=== PATIENT | male | born 1955 | race Caucasian/White ===

== ENCOUNTER 2020-10-16 15:25 | Outpatient (RCR) | payer BC, SELFPAY ==
[2020-10-16] MEDS: COVID-19 VACC, MRNA(PFIZER)/PF 30 MCG/0.3 ML SYRINGE IM (08:06)
[2020-11-06] MEDS: COVID-19 VACC, MRNA(PFIZER)/PF 30 MCG/0.3 ML SYRINGE IM (07:46)
== END 2020-10-16 23:59 ==
LOC: IMMUN 15:25
PROVIDERS: PCP Internal Medicine; Visit Provider Family Medicine
DX: Z23 Encounter for immunization (principal)
CPT/HCPCS: 0001A; 0002A; 91300

== ENCOUNTER 2023-08-27 10:04 | Emergency (ER) | payer BC, SELFPAY ==
[2023-08-27 10:04] VITALS: BP 147/86; PULSE 81; RESP 18; TEMP 35.2; O2SAT 98; BMI 35.9
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
--- OUTSIDE RECORDS SUMMARY | 2023-08-27 10:32 | XMS RPT_ITS | CCD ---
Author Name Unknown Address [address] [place] [address] Organization [facility] Care Team Providers Care Hot Dog Vendor Name Role Phone Govind Martinez MD Primary Care Provider GOVIND MARTINEZ Primary Care Unavailable JUSTINAMPOLEKSANDR GOVIND Lelo Referring Unavailable TALAMPAS GOVIND Lelo Primary Care Unavailable SELF Referring Unavailable JUSTINAMPOLEKSANDR GOVIND D Primary Care Unavailable JUSTINAMPOLEKSANDR GOVIND D Referring Unavailable TALAMPOLEKSANDR GOVIND D Attending Unavailable YURI MARTINEZA D Primary Care Unavailable Allergies Allergy Classification Reported Allergen(s) Allergy Type Date of Onset Reaction(s) Facility (5 sources) Amoxicillin / Clavulanate; Translations: [AMOXICILLIN-POT CLAVULANATE] Drug Allergy 02-26-2015 Diarrhea [facility] Work Phone: Medications Current Medications Medication Drug Class(es) Dates Sig (Normalized) Sig (Original) cephalexin 500 mg oral capsule (1 source) Cephalosporin Antibacterial Start: 01-29-2023 End: 02-05-2023 take 1 capsule by mouth three times daily cephALEXin (KEFLEX) 500 mg capsule Take 1 capsule by mouth three times daily for 7 days. 21 capsule 0 01/29/2023 02/05/2023 Active Completed/Discontinued Medications Medication Drug Class(es) Dates Sig (Normalized) Sig (Original) aspirin 81 mg chewable tablet (4 sources) Platelet Aggregation Inhibitor, Nonsteroidal Anti-inflammatory Drug take 1 tablet by mouth once daily aspirin 81 mg chewable tablet Take 81 mg by mouth once daily. 0 Active Problems Active Problems Problem Classification Problem Date Documented Da te Episodic/Chronic Diabetes mellitus without complication (6 sources) Increased glucose level; Translations: [Other abnormal glucose] Onset: 11-09-2022 Episodic Essential hypertension (7 sources) Essential hypertension; Translations: [Essential (primary) hypertension] Onset: 09-17-2020 Chronic Immunizations and screening for infectious disease (2 sources) Vaccination needed; Translations: [Encounter for immunization] Episodic Other nutritional; endocrine; and metabolic disorders (5 sources) Obesity; Translations: [Other obesity due to excess calories] Onset: 09-17-2020 Chronic Other nutritional; endocrine; and metabolic disorders (1 source) Obesity caused by energy imbalance; Translations: [Other obesity due to excess calories] Onset: 09-17-2020 09-17-2020 Chronic Other skin disorders (1 source) Eruption; Translations: [Rash and other nonspecific skin eruption] Episodic Residual codes; unclassified (2 sources) Bilateral lower limb edema; Translations: [Localized edema] Episodic Thyroid disorders (14 sources) Acquired hypothyroidism; Translations: [Hypothyroidism, unspecified] Onset: 12-14-2011 Chronic Past or Other Problems Problem Classification Problem Date Documented Da te Episodic/Chronic Other non-traumatic joint disorders (4 sources) Hip pain; Translations: [Pain in left hip] Onset: 09-11-2019 09-11-2019 Episodic Spondylosis; intervertebral disc disorders; other back problems (5 sources) Spinal stenosis of lumbar region; Translations: [Spinal stenosis, lumbar region with neurogenic claudication] Onset: 09-17-2020 Episodic Results Test Name Value Interpretation Reference Range Facil ity Vital Signs Date Time Vital Sign Value Performing Clinician Maggie bird 01-29-2023 08:25-0400 Body temperature 98.29 [degF] Mo Lovelace APRN.[employer] Work Phone: [facility] 01-29-2023 08:25-0400 Body weight 115.3 kg Mo Lovelace APRN.[employer] Work Phone: [facility] 01-29-2023 08:25-0400 Diastolic blood pressure 76 mm[Hg] Mo Lovelace GLASS VIAL FILLER.[employer]ESPERSON [employer] Work Phone: [facility] 01-29-2023 08:25-0400 Heart rate 90 /min Mo Lovelace APRN.[employer] Work Phone: [facility] 01-29-2023 08:25-0400 Respiratory rate 18 /min Mo Lovelace APRN.[employer] Work Phone: [facility] 01-29-2023 08:25-0400 SaO2% (BldA) [Mass fraction] 97 % Mo Lovelace GLASS VIAL FILLER.[employer] Work Phone: [facility] 01-29-2023 08:25-0400 Systolic blood pressure 110 mm[Hg] Mo Lovelace GLASS VIAL FILLER.[employer] Work Phone: [facility] 11-09-2022 09:24-0400 Diastolic blood pressure 80 mm[Hg] Govind Martinez MD Work Phone: [facility] 11-09-2022 09:24-0400 Systolic blood pressure 130 mm[Hg] Govind Martinez MD Work Phone: [facility] 11-09-2022 08:51-0400 Body height 177.7 cm Govind Martinez MD Work Phone: [facility] 11-09-2022 08:51-0400 Body temperature 97.7 [degF] Govind Martinez MD Work Phone: [facility] 11-09-2022 08:51-0400 Body weight 116.12 kg Govind Martinez MD Work Phone: [facility] 11-09-2022 08:51-0400 Heart rate 69 /min Govind Martinez MD Work Phone: [facility] 11-09-2022 08:51-0400 Respiratory rate 18 /min Govind Martinez MD Work Phone: [facility] 11-09-2022 08:51-0400 SaO2% (BldA) [Mass fraction] 97 % Govind Martinez MD Work Phone: [facility] 10-30-2021 17:54-0400 Diastolic blood pressure 78 mm[Hg] Govind Martinez MD Work Phone: [facility] 10-30-2021 17:54-0400 Systolic blood pressure 122 mm[Hg] Govind Martinez MD Work Phone: [facility] 10-30-2021 16:28-0400 Body weight 116.85 kg Govind Martinez MD Work Phone: [facility] 10-30-2021 16:28-0400 Heart rate 82 /min Govind Martinez MD Work Phone: [facility] Encounters Encounter Date Encounter Type Care Provider Facility Start: 01-29-2023 End: 01-29-2023 ambulatory GOVIND MARTINEZ Facility:[facility] Start: 01-29-2023 End: 01-29-2023 Office outpatient visit 25 minutes Mo Lovelace APRN.[employer]ERSON [employer] Work Phone: [facility] Procedures Date Procedure Procedure Detail Performing Clinician Start: 09-14-2022 Second Genome-BIONTMRI Interventions COVI D-19 BIVALENT BOOSTER VACCINE, AGE 12+ YR Govind Martinez MD Work Phone: Start: 11-11-2020 Adult depression scr eening assessment Govind Martinez MD Work Phone: Start: 08-28-2018 Colonoscopy Govind meyers MD Work Phone: Plan of Treatment Date Care Activity Detail Author Start: 03-06-2029 Urine microalbumin profile DTA P,TDAP,TD (2 - Td or Tdap) [facility] Start: 10-30-2026 PROSTATE CANCER SCRE ENING DISCUSSION PROSTATE CANCER SCREENING DISCUSSION [facility] Start: 11-09-2025 DIABETES SCREEN DIABETES SCREEN [facility] Start: 10-19-2024 DIABETES SCREEN DIABETES SCREEN [facility] Start: 03-03-2024 LIPID SCREEN LIPID SCREEN [facility] Start: 01-30-2024 BP CONTROLLED (<130/80) BP CONTROLLE D (<130/80) [facility] Start: 11-10-2023 ANNUAL PCP TEAM SPRING SETTER JEREL DISEASE VISIT ANNUAL PCP TEAM CHRONIC DISEASE VISIT [facility] Start: 11-10-2023 SHINGRIX VACCINE (1 of 2) DU GRIX VACCINE (1 of 2) [facility] Immunizations Immunization Date Immunization Notes Care Provider Fa angel 11-09-2022 pneumococcal (PCV20) vaccine, 20 valent (PREVNAR 20) Govind Martinez MD Work Phone: [facility] 11-09-2022 pneumococcal Conjuga te, unspecified formulation Govind Martinez MD Work Phone: [facility] Work Phone: 09-14-2022 COVID-19 booster vaccine, age 12+ yr, bivalent (PFIZER-BlendspaceNTMRI Interventions) Nv Nurse Work Phone: [facility] Work Phone: 05-24-2022 influenza, injectabl e, quadrivalent, preservative free Govind Martinez MD Work Phone: [facility] 05-11-2021 influenza, injectabl e, quadrivalent, preservative free Govind Martinez MD Work Phone: [facility] 06-02-2020 Influenza, injectabl e, Madin Alma Canine Kidney, preservative free, quadrivalent Govind Martinez MD Work Phone: [facility] 08-06-2019 influenza, injectabl e, quadrivalent, contains preservative Govind Martinez MD Work Phone: [facility] 03-06-2019 tetanus toxoid, redu laith diphtheria toxoid, and acellular pertussis vaccine, adsorbed Govind Martinez MD Work Phone: [facility] Payers Date Payer Category Payer Unknown [employer] PPO OOS [id number] 2020-Present [phone] [address] [place] [address] PPO [id number] 2020 Unknown [employer] PPO OOS [id number] 2020-Present [phone] [address] [place] [address] PPO [id number] 2020 Unknown [id number] Social History Date Type Detail Facility Start: 03-03-2011 End: 11-09-2022 Tobacco smoking status NHIS Never smoked tobacco [facility] Work Phone: Start: 10-30-2021 End: 01-29-2023 Alcohol intake Current non-drinker of alcohol (finding) [facility] Start: 1955 Sex Assigned At Male [facility] Start: 10-20-2021 End: 10-30-2021 Exposure to SARS-CoV-2 (event) Not sure [facility] Start: 03-03-2011 End: 11-09-2022 Tobacco use and exposure Smokeless tobacco non-user [facility] Work Phone: Start: 11-02-2022 History SDOH Alcohol Frequency 1 [facility] Start: 11-02-2022 History SDOH Alcohol Std Drinks 0 [facility] Start: 11-02-2022 History SDOH Social Connections Phone 5 [facility] Start: 11-02-2022 History SDOH Social Connections Get Together 2 [facility] Start: 11-02-2022 History SDOH Social Connections Yarsanism 3 [facility] Start: 11-02-2022 History SDOH Physica l Activity MPS 4 [facility] Clinical Notes 07-21-2011 to 01-29-2023 Mo Lovelace APRN.[employer] - 01/29/2023 8:27 AM Lucian Martinez MD - 11/09/2022 9:02 AM Marty Shen LPN - 09/14/2022 3:16 PM Elena Martinez MD - 10/30/2021 4:24 PM EDT Note Date & Type Note Facility 01-29-2023 Note HNO ID: [id number] Author: Mo Lovelace APRN.[employer] Service: ? Author Type: Nurse Practitioner Type: Progress Notes Filed: 01/29/2023 9:07 AM Note Text: Subjective HPI Nontoxic-appearing male presents urgent care chief plaint rash. Duration of symptom 1 week. Associated symptoms slightly pruritic erythematous base rash. States rash has spread in size. It is slightly red. Slightly painful. Does have poison nora on back of his leg. Does not know if this rash is related to poison nora or not. Has been keeping it covered and using mupirocin. Denies any significant pain. No medication changes antibiotic use. No numbness no tingling Denies any fever body aches chills productive cough chest pain shortness of breath pleuritic pain hemoptysis nausea vomiting abdominal pain change in bowel or bladder habits. Past medical history prescription medication use and allergies reviewed. .Patient presents with: Derm Problem: R ankle skin infection x1 week PAST MEDICAL HISTORY Diagnosis Date Hypertension Mild. Controlled without medications Hypothyroidism Multiple thyroid nodules Sep 2010 PAST SURGICAL HISTORY Procedure Laterality Date COLONOSCOPY AND POLYPECTOMY 2006 [facility] COLONOSCOPY FLX DX W/COLLJ SPEC WHEN PFRMD 08/28/2018 Colonoscopy EGD ~1998 ulcer FNA 2010 thyroid PAST SURGICAL HISTORY OF 09/24/2020 Microdiscectomy L3-4 REMOVE CATARACT, INSERT LENS, INTRACAPSUL 2007 Unilateral left. Unknown etiology THYROID/PARATHYROID (POC) ENDO USE ONLY 12/20/2014 ALLERGIES Augmentin [Amoxicillin-Pot Clavulanate] MEDICATIONS hydroCHLOROthiazide 12.5 mg capsule Take 2 capsules by mouth once daily. levothyroxine (SYNTHROID) 88 mcg tablet Take 1 tablet by mouth once daily. triamcinolone (KENALOG) 0.025 % cream Apply to affected area twice daily. Lutein 20 mg cap Take 20 mg by mouth once daily. gi-7-poc-epa-fish oil-vit D3 [phone] rb-df-yz-unit cap Take by mouth once daily. aspirin 81 mg chewable tablet Take 81 mg by mouth once daily. Garlic ORAL Tab Take 1 tablet by mouth. [id number] DAILY FAMILY HISTORY Problem Relation Age of Onset Cancer Mother Ovarian Aneurysm Father aortic Diabetes Sister Thyroid Cancer Brother papillary thyroid cancer other (Blood clots) Brother Diabetes Brother Ischemic Heart Disease No Family History Social History Tobacco Use Smoking status: Never Smokeless tobacco: Never Vaping Use Vaping Use: Never used Substance Use Topics Alcohol use: No Drug use: No BP 110/76 Pulse 90 Temp 36.8 ?C (98.3 ?F) Resp 18 Wt 115.3 kg (254 lb 3.2 oz) SpO2 97% BMI 36.49 kg/m? Review of Systems Constitutional: Negative for chills, fever and malaise/fatigue. HENT: Negative for congestion, ear discharge, ear pain, sinus pain and sore throat. Eyes: Negative for blurred vision, pain, discharge and redness. Respiratory: Negative for cough, hemoptysis, sputum production, shortness of breath, wheezing and stridor. Cardiovascular: Negative for chest pain. Gastrointestinal: Negative for abdominal pain, diarrhea, nausea and vomiting. Musculoskeletal: Negative for myalgias. Skin: Positive for itching and rash. Neurological: Negative for dizziness and headaches. Objective Physical Exam Constitutional: General: He is not in acute distress. Appearance: He is not toxic-appearing. HENT: Head: Normocephalic. Nose: Nose normal. Eyes: Pupils: Pupils are equal, round, and reactive to light. Cardiovascular: Rate and Rhythm: Normal rate. Pulmonary: Effort: Pulmonary effort is normal. No respiratory distress. Musculoskeletal: Cervical back: Normal range of motion. Skin: General: Skin is warm and dry. Comments: Erythematous base rash with blood noted. Some surrounding erythema noted. Mild edema. No remote redness. Some clear drainage noted. Neurological: General: No focal deficit present. Mental Status: He is alert. ASSESSMENT/PLAN: 1. Rash - ICD9: 782.1, ICD10: R21 Diagnosis rash. Suspicious of contact dermatitis due to poison nora exposure. Placed on prednisone taper and Keflex for secondary bacterial infection. Patient was educated on supportive therapies. Patient will follow up with primary care provider as needed. Patient was instructed to immediately proceed to emergency room for any new, worsening, or symptoms lasting longer than anticipated. The patient's clinical presentation is otherwise unremarkable at this time. Based on exam and clinical finding, the patient is stable for discharge. Plan of care was discussed with patient. Patient verbalizes understanding and agrees to plan of care. This note was generated using [employer] software. It may contain errors in wording, punctuation, or spelling. Mo Lovelace APRN.[facility] 01-29-2023 History of Present illness Narrative Subjective HPI Nontoxic-appearing male presents urgent care chief plaint rash. Duration of symptom 1 week. Associated symptoms slightly pruritic erythematous base rash. States rash has spread in size. It is slightly red. Slightly painful. Does have poison nora on back of his leg. Does not know if this rash is related to poison nora or not. Has been keeping it covered and using mupirocin. Denies any significant pain. No medication changes antibiotic use. No numbness no tingling Denies any fever body aches chills productive cough chest pain shortness of breath pleuritic pain hemoptysis nausea vomiting abdominal pain change in bowel or bladder habits. Past medical history prescription medication use and allergies reviewed. .Patient presents with: Derm Problem: R ankle skin infection x1 week PAST MEDICAL HISTORY Diagnosis Date Hypertension Mild. Controlled without medications Hypothyroidism Multiple thyroid nodules Sep 2010 PAST SURGICAL HISTORY Procedure Laterality Date COLONOSCOPY & POLYPECTOMY 2006 [facility] COLONOSCOPY FLX DX W/COLLJ SPEC WHEN PFRMD 08/28/2018 Colonoscopy EGD ~1998 ulcer FNA 2010 thyroid PAST SURGICAL HISTORY OF 09/24/2020 Microdiscectomy L3-4 REMOVE CATARACT, INSERT LENS, INTRACAPSUL 2007 Unilateral left. Unknown etiology US THYROID/PARATHYROID (POC) ENDO USE ONLY 12/20/2014 ALLERGIES Augmentin [Amoxicillin-Pot Clavulanate] MEDICATIONS hydroCHLOROthiazide 12.5 mg capsule Take 2 capsules by mouth once daily. levothyroxine (SYNTHROID) 88 mcg tablet Take 1 tablet by mouth once daily. triamcinolone (KENALOG) 0.025 % cream Apply to affected area twice daily. Lutein 20 mg cap Take 20 mg by mouth once daily. ji-3-bza-epa-fish oil-vit D3 [phone] yf-hj-xv-unit cap Take by mouth once daily. aspirin 81 mg chewable tablet Take 81 mg by mouth once daily. Garlic ORAL Tab Take 1 tablet by mouth. [id number] DAILY FAMILY HISTORY Problem Relation Age of Onset Cancer Mother Ovarian Aneurysm Father aortic Diabetes Sister Thyroid Cancer Brother papillary thyroid cancer other (Blood clots) Brother Diabetes Brother Ischemic Heart Disease No Family History Social History Tobacco Use Smoking status: Never Smokeless tobacco: Never Vaping Use Vaping Use: Never used Substance Use Topics Alcohol use: No Drug use: No BP 110/76 Pulse 90 Temp 36.8 C (98.3 F) Resp 18 Wt 115.3 kg (254 lb 3.2 oz) SpO2 97% BMI 36.49 kg/m Review of Systems Constitutional: Negative for chills, fever and malaise/fatigue. HENT: Negative for congestion, ear discharge, ear pain, sinus pain and sore throat. Eyes: Negative for blurred vision, pain, discharge and redness. Respiratory: Negative for cough, hemoptysis, sputum production, shortness of breath, wheezing and stridor. Cardiovascular: Negative for chest pain. Gastrointestinal: Negative for abdominal pain, diarrhea, nausea and vomiting. Musculoskeletal: Negative for myalgias. Skin: Positive for itching and rash. Neurological: Negative for dizziness and headaches. Objective Physical Exam Constitutional: General: He is not in acute distress. Appearance: He is not toxic-appearing. HENT: Head: Normocephalic. Nose: Nose normal. Eyes: Pupils: Pupils are equal, round, and reactive to light. Cardiovascular: Rate and Rhythm: Normal rate. Pulmonary: Effort: Pulmonary effort is normal. No respiratory distress. Musculoskeletal: Cervical back: Normal range of motion. Skin: General: Skin is warm and dry. Comments: Erythematous base rash with blood noted. Some surrounding erythema noted. Mild edema. No remote redness. Some clear drainage noted. Neurological: General: No focal deficit present. Mental Status: He is alert. ASSESSMENT/PLAN: 1. Rash - ICD9: 782.1, ICD10: R21 Diagnosis rash. Suspicious of contact dermatitis due to poison nora exposure. Placed on prednisone taper and Keflex for secondary bacterial infection. Patient was educated on supportive therapies. Patient will follow up with primary care provider as needed. Patient was instructed to immediately proceed to emergency room for any new, worsening, or symptoms lasting longer than anticipated. The patient's clinical presentation is otherwise unremarkable at this time. Based on exam and clinical finding, the patient is stable for discharge. Plan of care was discussed with patient. Patient verbalizes understanding and agrees to plan of care. This note was generated using [employer] software. It may contain errors in wording, punctuation, or spelling. Mo Lovelace APRN.MARTIN documented in this encounter [facility] 11-09-2022 Note HNO ID: [id number] Author: Govind Martinez MD Service: ? Author Type: Physician Type: Progress Notes Filed: 11/09/2022 1:48 PM Note Text: This note was created using [employer]. Subjective Jazmin Le is a 67 year old male. HISTORY Jazmin Le is a 67 year old gentleman here for yearly exam and follow up appointment. No problems with BPs at home. Checks once in a while. Clinically euthyroid. Does have HCDPOA and LW. Discussed dropping off copy. HCDPOA os [place]. Walking daily now. Working on healthier diet. Weight already coming down. PAST MEDICAL HISTORY Diagnosis Date Hypertension Mild. Controlled without medications Hypothyroidism Multiple thyroid nodules Sep 2010 Current Outpatient Medications Medication Sig triamcinolone (KENALOG) 0.025 % cream Apply to affected area twice daily. hydroCHLOROthiazide 12.5 mg capsule Take 2 capsules by mouth once daily. levothyroxine (SYNTHROID) 88 mcg tablet Take 1 tablet by mouth once daily. Lutein 20 mg cap Take 20 mg by mouth once daily. qd-3-ovq-epa-fish oil-vit D3 [phone] jn-di-wc-unit cap Take by mouth once daily. aspirin 81 mg chewable tablet Take 81 mg by mouth once daily. Garlic ORAL Tab Take 1 tablet by mouth. [id number] DAILY No current facility-administered medications for this visit. ALLERGIES Allergen Reactions Augmentin [Amoxicil* Diarrhea FAMILY HISTORY Problem Relation Age of Onset Cancer Mother Ovarian Aneurysm Father aortic Diabetes Sister Thyroid Cancer Brother papillary thyroid cancer other (Blood clots) Brother Diabetes Brother Ischemic Heart Disease No Family History Social History Tobacco Use Smoking status: Never Smokeless tobacco: Never Vaping Use Vaping Use: Never used Substance Use Topics Alcohol use: No Drug use: No Review of Systems Objective BP 136/78 Pulse 69 Temp 36.5 ?C (97.7 ?F) Resp 18 Ht 177.7 cm (5' 9.98 ) Wt 116.1 kg (256 lb) SpO2 97% BMI 36.75 kg/m? Last 5 Encounter Wt Readings: Date: Wt: 11/09/2022 116.1 kg (256 lb) 10/30/2021 116.8 kg (257 lb 9.6 oz) 11/17/2020 113.4 kg (250 lb) 09/17/2020 114.3 kg (252 lb) 09/05/2020 115.7 kg (255 lb) No waist measurement recorded Estimated body mass index is 36.75 kg/m? as calculated from the following: Height as of this encounter: 177.7 cm (5' 9.98 ). Weight as of this encounter: 116.1 kg (256 lb). Last 5 Encounter BP Readings: Date: BP: 11/09/2022 136/78 10/30/2021 122/78 11/17/2020 140/90 09/17/2020 134/80 09/05/2020 131/78 11/09/22 0851 11/09/22 0924 BP: 136/78 130/80 Pulse: 69 Resp: 18 Temp: 36.5 ?C (97.7 ?F) SpO2: 97% Weight: 116.1 kg (256 lb) Height: 177.7 cm (5' 9.98 ) Physical Exam Vitals reviewed. Constitutional: Appearance: Normal appearance. He is obese. HENT: Head: Normocephalic. Right Ear: Tympanic membrane, ear canal and external ear normal. Left Ear: Tympanic membrane, ear canal and external ear normal. Mouth/Throat: Mouth: Mucous membranes are moist. Pharynx: Oropharynx is clear. Eyes: Extraocular Movements: Extraocular movements intact. Conjunctiva/sclera: Conjunctivae normal. Neck: Vascular: No carotid bruit. Cardiovascular: Rate and Rhythm: Normal rate and regular rhythm. Pulses: Normal pulses. Heart sounds: Normal heart sounds. Comments: 1+ ankle edema and pretibial edema bilaterally Pulmonary: Effort: Pulmonary effort is normal. Breath sounds: Normal breath sounds. Abdominal: General: Abdomen is flat. There is no distension. Palpations: Abdomen is soft. There is no mass. Musculoskeletal: Cervical back: Normal range of motion. Skin: General: Skin is warm and dry. Neurological: General: No focal deficit present. Mental Status: He is alert and oriented to person, place, and time. Psychiatric: Attention and Perception: Attention and perception normal. Mood and Affect: Mood and affect normal. Speech: Speech normal. Behavior: Behavior normal. Thought Content: Thought content normal. Cognition and Memory: Cognition normal. Judgment: Judgment normal. Assessment and Plan Encounter Diagnosis ICD-10-CM 1. Essential hypertension I10 hydroCHLOROthiazide 12.5 mg capsule COMP METABOLIC PANEL CBC 2. Acquired hypothyroidism E03.9 levothyroxine (SYNTHROID) 88 mcg tablet TSH BLD T4 FREE/FREE THYROX T3 FREE BLD US THYROID/PARATHYROID 3. Multiple thyroid nodules E04.2 TSH BLD T4 FREE/FREE THYROX T3 FREE BLD US THYROID/PARATHYROID 4. Elevated hemoglobin A1c R73.09 COMP METABOLIC PANEL HGB A1C 5. Bilateral lower extremity edema R60.0 hydroCHLOROthiazide 12.5 mg capsule prior left ankle fracture contributes to increased swelling in left ankle 6. Elevated glucose R73.09 COMP METABOLIC PANEL HGB A1C 7. Encounter for immunization Z23 PNEUMOCOCCAL VACCINE (PREVNAR 20) 8. Class 2 obesity due to excess calories without serious comorbidity with body mass index (BMI) of (more content not included)... [facility] 11-09-2022 History of Present illness Narrative This note was created using [employer]. Subjective Jazmin Le is a 67 year old male. HISTORY Jazmin Le is a 67 year old gentleman here for yearly exam and follow up appointment. No problems with BPs at home. Checks once in a while. Clinically euthyroid. Does have HCDPOA and LW. Discussed dropping off copy. HCDPOA os [place]. Walking daily now. Working on healthier diet. Weight already coming down. PAST MEDICAL HISTORY Diagnosis Date Hypertension Mild. Controlled without medications Hypothyroidism Multiple thyroid nodules Sep 2010 Current Outpatient Medications Medication Sig triamcinolone (KENALOG) 0.025 % cream Apply to affected area twice daily. hydroCHLOROthiazide 12.5 mg capsule Take 2 capsules by mouth once daily. levothyroxine (SYNTHROID) 88 mcg tablet Take 1 tablet by mouth once daily. Lutein 20 mg cap Take 20 mg by mouth once daily. lk-9-ksu-epa-fish oil-vit D3 [phone] vt-kl-ma-unit cap Take by mouth once daily. aspirin 81 mg chewable tablet Take 81 mg by mouth once daily. Garlic ORAL Tab Take 1 tablet by mouth. [id number] DAILY No current facility-administered medications for this visit. ALLERGIES Allergen Reactions Augmentin [Amoxicil* Diarrhea FAMILY HISTORY Problem Relation Age of Onset Cancer Mother Ovarian Aneurysm Father aortic Diabetes Sister Thyroid Cancer Brother papillary thyroid cancer other (Blood clots) Brother Diabetes Brother Ischemic Heart Disease No Family History Social History Tobacco Use Smoking status: Never Smokeless tobacco: Never Vaping Use Vaping Use: Never used Substance Use Topics Alcohol use: No Drug use: No Review of Systems Objective BP 136/78 Pulse 69 Temp 36.5 C (97.7 F) Resp 18 Ht 177.7 cm (5' 9.98 ) Wt 116.1 kg (256 lb) SpO2 97% BMI 36.75 kg/m Last 5 Encounter Wt Readings: Date: Wt: 11/09/2022 116.1 kg (256 lb) 10/30/2021 116.8 kg (257 lb 9.6 oz) 11/17/2020 113.4 kg (250 lb) 09/17/2020 114.3 kg (252 lb) 09/05/2020 115.7 kg (255 lb) No waist measurement recorded Estimated body mass index is 36.75 kg/m as calculated from the following: Height as of this encounter: 177.7 cm (5' 9.98 ). Weight as of this encounter: 116.1 kg (256 lb). Last 5 Encounter BP Readings: Date: BP: 11/09/2022 136/78 10/30/2021 122/78 11/17/2020 140/90 09/17/2020 134/80 09/05/2020 131/78 11/09/22 0851 11/09/22 0924 BP: 136/78 130/80 Pulse: 69 Resp: 18 Temp: 36.5 C (97.7 F) SpO2: 97% Weight: 116.1 kg (256 lb) Height: 177.7 cm (5' 9.98 ) Physical Exam Vitals reviewed. Constitutional: Appearance: Normal appearance. He is obese. HENT: Head: Normocephalic. Right Ear: Tympanic membrane, ear canal and external ear normal. Left Ear: Tympanic membrane, ear canal and external ear normal. Mouth/Throat: Mouth: Mucous membranes are moist. Pharynx: Oropharynx is clear. Eyes: Extraocular Movements: Extraocular movements intact. Conjunctiva/sclera: Conjunctivae normal. Neck: Vascular: No carotid bruit. Cardiovascular: Rate and Rhythm: Normal rate and regular rhythm. Pulses: Normal pulses. Heart sounds: Normal heart sounds. Comments: 1+ ankle edema and pretibial edema bilaterally Pulmonary: Effort: Pulmonary effort is normal. Breath sounds: Normal breath sounds. Abdominal: General: Abdomen is flat. There is no distension. Palpations: Abdomen is soft. There is no mass. Musculoskeletal: Cervical back: Normal range of motion. Skin: General: Skin is warm and dry. Neurological: General: No focal deficit present. Mental Status: He is alert and oriented to person, place, and time. Psychiatric: Attention and Perception: Attention and perception normal. Mood and Affect: Mood and affect normal. Speech: Speech normal. Behavior: Behavior normal. Thought Content: Thought content normal. Cognition and Memory: Cognition normal. Judgment: Judgment normal. Assessment and Plan Encounter Diagnosis ICD-10-CM 1. Essential hypertension I10 hydroCHLOROthiazide 12.5 mg capsule COMP METABOLIC PANEL CBC 2. Acquired hypothyroidism E03.9 levothyroxine (SYNTHROID) 88 mcg tablet TSH BLD T4 FREE/FREE THYROX T3 FREE BLD US THYROID/PARATHYROID 3. Multiple thyroid nodules E04.2 TSH BLD T4 FREE/FREE THYROX T3 FREE BLD US THYROID/PARATHYROID 4. Elevated hemoglobin A1c R73.09 COMP METABOLIC PANEL HGB A1C 5. Bilateral lower extremity edema R60.0 hydroCHLOROthiazide 12.5 mg capsule prior left ankle fracture contributes to increased swelling in left ankle 6. Elevated glucose R73.09 COMP METABOLIC PANEL HGB A1C 7. Encounter for immunization Z23 PNEUMOCOCCAL VACCINE (PREVNAR 20) 8. Class 2 obesity due to excess calories without serious comorbidity with body mass index (BMI) of 36.0 to 36.9 in adult E66.09 Z68.36 Above issues addressed with patient. Patient involved in shared decision making for management of medical issues. History and medications reviewed. Epic updated as needed Refills and/or prescriptions taken care of and meds adjusted as indicated after reviewed history, exam and labs. Health Maintenance reviewed. Updated record and/or ordered tests as recorded. Encouraged on efforts at healthy diet and regular exercise and adequate sleep. Needs to keep working on diet and exercise with lifestyle changes for effective weight loss as well as prevention of DM, and control of BP and lipids. Weight already starting to come down with changes made so far. Still just prediabetes.BP improved. Expect to improve to goal 120/70's or better. Continue present management. Clinically euthyroid. TSH fine. Continue to adjust dose of replacement as indicated based on symptoms and labs. Follow up ultrasound of thyroid as was recommended by Dr. Mccormack every 2 years at the time of last appointment. Further evaluation and treatment as indicated. Govind Martinez MD documented in this encounter [facility] 09-14-2022 Note HNO ID: [id number] Author: Pauline Shen LPN Service: ? Author Type: ? Type: Progress Notes Filed: 09/14/2022 3:18 PM Note Text: Patient presents for COVID vaccine. Denies any problems at this time. Tolerated injection well. Pauline Shen LPN [facility] 09-14-2022 History of Present illness Narrative Patient presents for COVID vaccine. Denies any problems at this time. Tolerated injection well. Pauline Shen LPN documented in this encounter [facility] 10-30-2021 History of Present illness Narrative This note was created using [employer]. Subjective Jazmin Le is a 66 year old male. HISTORY Jazmin Le is a 66 year old gentleman here for yearly exam and follow up appointment. Had [id number]--vmxy taste and smell for few days; bad sinusitis as well. Did well after microdiscectomy L3-4. Took a year to recover. Losing weight. Walking more. Will establish with new emergency physician.US for nodule every 2 years. Stable on meds. PAST MEDICAL HISTORY Diagnosis Date Hypertension Mild. Controlled without medications Hypothyroidism Multiple thyroid nodules Sep 2010 Current Outpatient Medications Medication Sig hydroCHLOROthiazide 12.5 mg capsule Take 2 capsules by mouth once daily. levothyroxine (SYNTHROID) 88 mcg tablet Take 1 tablet by mouth once daily. Lutein 20 mg cap Take 20 mg by mouth once daily. nf-8-wjj-epa-fish oil-vit D3 [phone] kl-ab-zr-unit cap Take by mouth once daily. aspirin 81 mg chewable tablet Take 81 mg by mouth once daily. Garlic ORAL Tab Take 1 tablet by mouth. [id number] DAILY No current facility-administered medications for this visit. ALLERGIES Allergen Reactions Augmentin [Amoxicil* Diarrhea PAST SURGICAL HISTORY Procedure Laterality Date COLONOSCOPY & POLYPECTOMY 2006 Aga COLONOSCOPY FLX DX W/COLLJ SPEC WHEN PFRMD 08/28/2018 Colonoscopy EGD ~1997 ulcer FNA 2010 thyroid PAST SURGICAL HISTORY OF 09/24/2020 Microdiscectomy L3-4 REMOVE CATARACT, INSERT LENS, INTRACAPSUL 2007 Unilateral left. Unknown etiology US THYROID/PARATHYROID (POC) ENDO USE ONLY 12/20/2014 FAMILY HISTORY Problem Relation Age of Onset Cancer Mother Ovarian Aneurysm Father aortic Diabetes Sister Thyroid Cancer Brother papillary thyroid cancer other (Blood clots) Brother Diabetes Brother Ischemic Heart Disease No Family History Social History Tobacco Use Smoking status: Never Smoker Smokeless tobacco: Never Used Vaping Use Vaping Use: Never used Substance Use Topics Alcohol use: No Drug use: No Review of Systems Objective BP 130/82 Pulse 82 Wt 116.8 kg (257 lb 9.6 oz) BMI 35.93 kg/m Last 5 Encounter Wt Readings: Date: Wt: 10/30/2021 116.8 kg (257 lb 9.6 oz) 11/17/2020 113.4 kg (250 lb) 09/17/2020 114.3 kg (252 lb) 09/05/2020 115.7 kg (255 lb) 08/19/2020 114.3 kg (252 lb) No waist measurement recorded Estimated body mass index is 35.93 kg/m as calculated from the following: Height as of 11/17/20: 180.3 cm (5' 11 ). Weight as of this encounter: 116.8 kg (257 lb 9.6 oz). Last 5 Encounter BP Readings: Date: BP: 10/30/2021 130/82 11/17/2020 140/90 09/17/2020 134/80 09/05/2020 131/78 08/19/2020 104/62 10/30/21 1628 10/30/21 1754 BP: 130/82 122/78 Pulse: 82 Weight: 116.8 kg (257 lb 9.6 oz) Physical Exam Vitals reviewed. Constitutional: Appearance: Normal appearance. He is obese. Eyes: Conjunctiva/sclera: Conjunctivae normal. Cardiovascular: Rate and Rhythm: Normal rate and regular rhythm. Heart sounds: Normal heart sounds. Pulmonary: Effort: Pulmonary effort is normal. Breath sounds: Normal breath sounds. Musculoskeletal: Right lower leg: Edema present. Left lower leg: Edema (Ankle more on left than right medially) present. Skin: General: Skin is warm and dry. Neurological: General: No focal deficit present. Mental Status: He is alert and oriented to person, place, and time. Psychiatric: Mood and Affect: Mood normal. Behavior: Behavior normal. Thought Content: Thought content normal. Judgment: Judgment normal. Prior labs noted. Component Latest Ref Rng & Units 03/03/2019 04/28/2019 08/30/2020 09/15/2020 09/12/2021 10/19/2021 WBC 3.70 - 11.00 k/uL 6.96 6.92 8.03 RBC 4.20 - 6.00 m/uL 5.03 5.24 5.21 Hemoglobin 13.0 - 17.0 g/dL 15.0 15.8 15.8 Hematocrit 39.0 - 51.0 % 47.1 49.2 48.8 MCV 80.0 - 100.0 fL 93.6 93.9 93.7 MCH 26.0 - 34.0 pg 29.8 30.2 30.3 MCHC 30.5 - 36.0 g/dL 31.8 32.1 32.4 RDW-CV 11.5 - 15.0 % 13.0 12.3 13.2 Platelet Count 150 - 400 k/uL 175 202 209 MPV 9.0 - 12.7 fL 11.8 11.5 11.4 Neut% % 50.6 Abs Neut (ANC) 1.45 - 7.50 k/uL 3.49 Lymph% % 29.3 Abs Lymph 1.00 - 4.00 k/uL 2.03 Solano% % 14.7 Abs Solano <0.87 k/uL 1.02 (H) Eosin% % 4.0 Abs Eosin <0.46 k/uL 0.28 Baso% % 1.4 Abs Baso <0.11 k/uL 0.10 Nucleated Reds 0 /100 WBC 0.0 Absolute nRBC <0.01 k/uL <0.01 <0.01 <0.01 Diff Type Auto Diff Protein, Total 6.3 - 8.0 g/dL 6.8 Albumin 3.9 - 4.9 g/dL 4.0 Calcium 8.5 - 10.2 mg/dL 8.9 9.1 9.7 9.7 Bilirubin, Total 0.2 - 1.3 mg/dL 0.6 Alkaline Phosphatase 38 - 113 U/L 86 AST 14 - 40 U/L 23 Glucose 74 - 99 mg/dL 92 97 95 91 BUN 9 - 24 mg/dL 13 15 19 17 Creatinine 0.73 - 1.22 mg/dL 0.94 0.91 1.05 0.98 Sodium 136 - 144 mmol/L 135 (L) 142 138 138 Potassium 3.7 - 5.1 mmol/L 4.1 4.0 4.3 3.7 Chloride 97 - 105 mmol/L 100 103 100 100 CO2 22 - 30 mmol/L 26 25 31 (H) 28 Anion Gap 9 - 18 mmol/L 9 14 7 (L) 10 ALT 10 - 54 U/L 23 eGFR- >60 >60 >60 eGFR-All Other Races . >60 >60 >60 eGFR >=60 mL/min/1.73m 86 Cholesterol, Total <200 mg/dL 195 Triglyceride <150 mg/dL 86 HDL Cholesterol >39 mg/dL 37 (L) LDL Cholesterol <100 mg/dL 141 (H) Non HDL Cholesterol <130 mg/dL 158 (H) Fasting Time hrs 13 VLDL Cholesterol <30 mg/dL 17 TC:HDL Ratio <5.10 5.27 (H) LDL:HDL Ratio <2.54 3.81 (H) Hemoglobin A1C 4.3 - 5.6 % 5.7 (H) 6.0 (H) Estimated Average Glucose mg/dL 117 126 TSH 0.270 - 4.200 uU/mL 1.180 1.160 1.560 2.010 Glucose, Fasting 74 - 99 mg/dL 100 (H) Last thyroid US 09/05/20 ASSESSMENT/PLAN: 1. Routine Medical Patient here for yearly exam and follow up. Above issues addressed with patient. Patient involved in shared decision making for management of medical issues. History and medications reviewed. Epic updated as needed Refills taken care of and meds adjusted as indicated after reviewed history, exam and labs. Health Maintenance reviewed. Updated record and/or ordered tests as recorded. Encouraged on efforts at healthy diet and regular exercise and adequate sleep. Discussed shortcomings of PSA for screening for prostate cancer and declined testing 2. Essential hypertension - ICD9: 401.9, ICD10: I10 (primary diagnosis) - good control - Continue current medication(s) - Recommended regular aerobic exercise. - Discussed need and benefit for weight loss. - Goal of BP <130/80 - Recommended no refined sugar, low refined starch, healthy oil intake (olive oil), healthy protein (fish) along the lines of the Mediterranean diet. - HYDROCHLOROTHIAZIDE 12.5 MG CAPSULE 3. Bilateral lower extremity edema - ICD9: 782.3, ICD10: R60.0 Continue present management. Discussed management of mild pitting edema. Can use sport socks with mild compression but no tight band at top - HYDROCHLOROTHIAZIDE 12.5 MG CAPSULE 4. Acquired hypothyroidism - ICD9: 244.9, ICD10: E03.9 Clinically euthyroid. Noted goal for TSH in 1 to 2 range per patient who has been following with Dr. Mccormack. States that has been successfully losing weight lately. Considering options of following with me for labs and ordering thyroid US through radiology, or establish with another emergency physician at [facility]. Further evaluation and treatment as indicated. 5. Multiple thyroid nodules - ICD9: 241.1, ICD10: E04.2 As noted above with deciding about follow up. Next thyroid ultrasound due in 2022. 6. Spinal stenosis of lumbar region with neurogenic claudication - ICD9: 724.03, ICD10: M48.062 Doing well after surgery last year. 8. Elevated glucose - ICD9: 790.29, ICD10: R73.09 Needs to keep working on diet and exercise with lifestyle changes for effective weight loss as well as prevention of DM, and control of BP and lipids. 9. Elevated hemoglobin A1c - ICD9: 790.29, ICD10: R73.09 Needs to keep working on diet and exercise with lifestyle changes for effective weight loss as well as prevention of DM, and control of BP and lipids. 10. Class 2 obesity due to excess calories without serious comorbidity with body mass index (BMI) of 35.0 to 35.9 in adult - ICD9: 278.00, V85.35, ICD10: E66.09, Z68.35 Needs to keep working on diet and exercise with lifestyle changes for effective weight loss as well as prevention of DM, and control of BP and lipids. Govind Martinez MD documented in this encounter [facility] documented as of this encounter (statuses as of 10/30/2021) [facility]12-21-2011 History of Past illness Narrative* Problem Noted Date Resolved Date Hypothyroidism 07/21/2011 12/14/2011 documented as of this encounter (statuses as of 09/15/2022) [facility] History of Past illness Narrative* Problem Noted Date Resolved Date Hypothyroidism 07/21/2011 12/14/2011 documented as of this encounter (statuses as of 11/10/2022) [facility] History of Past illness Narrative* Problem Noted Date Resolved Date Hypothyroidism 07/21/2011 12/14/2011 documented as of this encounter (statuses as of 01/29/2023) [facility] Diagnosis Routine medical exam- Primary Routine general medical examination at a health care facility Essential hypertension Unspecified essential hypertension Bilateral lower extremity edema Edema Acquired hypothyroidism Unspecified hypothyroidism Multiple thyroid nodules Nontoxic multinodular goiter Spinal stenosis of lumbar region with neurogenic claudication Spinal stenosis, lumbar region, with neurogenic claudication Elevated glucose Other abnormal glucose Elevated hemoglobin A1c Other abnormal blood chemistry Class 2 obesity due to excess calories without serious comorbidity with body mass index (BMI) of 35.0 to 35.9 in adult [facility] Diagnosis Need for vaccination- Primary Need for prophylactic vaccination and inoculation against unspecified single disease [facility] Diagnosis Essential hypertension- Primary Unspecified essential hypertension Acquired hypothyroidism Unspecified hypothyroidism Multiple thyroid nodules Nontoxic multinodular goiter Elevated hemoglobin A1c Other abnormal blood chemistry Bilateral lower extremity edema Edema Elevated glucose Other abnormal glucose Encounter for immunization Need for other specified prophylactic vaccination against single bacterial disease Class 2 obesity due to excess calories without serious comorbidity with body mass index (BMI) of 36.0 to 36.9 in adult [facility] Diagnosis Rash- Primary Rash and other nonspecific skin eruption [facility] Diagnostic Procedure Only (Routine) - Pending Review Specialty Diagnoses / Procedures Referred By Mitch torrez Referred To Contact US IMAGING Diagnoses Acquired hypothyroidism Multiple thyroid nodules Procedures US THYROID/PARATHYROID US SOFT TISSUE HEAD & NECK REAL TIME IMGE Govind Mir MD [address] [place] [address] Us Imaging Referral ID Status Reason Start Date Expiration Date Visits Requested Visits Authorized [id number] Pending Review Auto-Generat ed Referral 11/09/2022 12/09/2023 1 1 [facility] Summary Purpose Family History No Family History Records FoundNo Family History Records Found Advance Directives No Advanced Directives Records FoundDocuments on File Type Date Recorded 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 Advance Directive(s) 08/29/2020 12:50 PM Advance Directive(s) 08/28/2018 8:10 AM Advance Directive(s) 08/21/2018 11:59 AM Additional Source Comments (unrecognized sect ion and content) No Status Records FoundNo Status Records Found INFORMATION SOURCE (unrecogn ized section and content) DATE CREATED AUTHOR AUTHOR'S ORGANIZ ATION 01/30/2023 [facility] Source Comments (unrecognize d section and content) In the event this informatio n is protected by the Federal Confidentiality of Alcohol and Drug Abuse Patient Records regulations: The Federal rules restrict any use of the information to criminally investigate or prosecute any alcohol or drug abuse patient.[facility] the event this information is protected by the Federal Confidentiality of Alcohol and Drug Abuse Patient Records regulations: The Federal rules restrict any use of the information to criminally investigate or prosecute any alcohol or drug abuse patient.[facility] the event this information is protected by the Federal Confidentiality of Alcohol and Drug Abuse Patient Records regulations: The Federal rules restrict any use of the information to criminally investigate or prosecute any alcohol or drug abuse patient.[facility] the event this information is protected by the Federal Confidentiality of Alcohol and Drug Abuse Patient Records regulations: The Federal rules restrict any use of the information to criminally investigate or prosecute any alcohol or drug abuse patient.[facility] Reason for Visit (unrecogniz ed section and content) Reason Comments Imm/Inj Reason Comments Yearly Exam Reason Comments Derm Problem R ankle skin infecti on x1 week Care Teams (unrecognized sec tion and content) Hot Dog 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 This clinical summary was aggregated from multiple sources. Caution should be exercised in using it in the provision of clinical care. This summary normalizes information from multiple sources, and as a consequence, information in this document may materially change the coding, format and clinical context of patient data. In addition, data may be omitted in some cases. CLINICAL DECISIONS SHOULD BE BASED ON THE PRIMARY CLINICAL RECORDS. [facility]. provides no warranty or guarantee of the accuracy or completeness of information in this document.
== END 2023-08-27 10:27 | disposition home or self-care (01) ==
LOC: ED 10:26
PROVIDERS: Emergency Provider Emergency Medicine; PCP Internal Medicine; Visit Provider Emergency Medicine
DX: M54.9 Dorsalgia, unspecified (principal); I10 Essential (primary) hypertension; Z98.890 Other specified postprocedural states
CPT/HCPCS: 99283